=== PATIENT | male | born 1960 | race Caucasian/White ===

== ENCOUNTER 2020-04-19 08:34 | Outpatient (CLI) | payer MEDICAID ==
--- NOTE | 2020-04-19 09:14 | RAD ---
EXAM: 5 views of the cervical spine HISTORY: Neck pain COMPARISON: None FINDINGS: AP, lateral, flexion/extension, and open mouth odontoid views of the cervical spine shows g rade 1 retrolisthesis of the C5 vertebral body relation to the vertebral bodies above and below this level. No acute fracture is seen. Degenerative changes are seen surrounding the C5/6 interverteb ral disc with joint space narrowing and osteophyte formation. Posterior facet arthrosis is seen throughout the cervical spine. No prevertebral soft tissue swelling is seen. Alignment is unchanged with flexion and extension. IMPRESSION: Degenerative changes of the cervical spine with unchanged alignment with bending
--- NOTE | 2020-04-19 09:17 | RAD ---
LUMBAR SPINE SERIES 3 VIEWS: Date: 04/19/2020 HISTORY: Back and right hip and leg pain. FINDINGS: Scoliotic change is seen convex to the right. Laminectomy changes seen at L2, L3, and L4, with severe disc narrowing at L2-3 and L3-4, less pronounced disc narrowing at L1-2, L4-5, and L5-S1 levels. Ped icles are intact. Degenerative facet changes are noted. IMPRESSION: Postop changes and severe arthritic changes of the spine. POS: LEXI
== END 2020-04-19 08:35 | disposition home or self-care (01) ==
LOC: BICRAD 08:34
PROVIDERS: ATTEND Neurological Surgery
DX: M54.40 Lumbago with sciatica, unspecified side (principal); M50.30 Other cervical disc degeneration, unspecified cervical region; M47.812 Spondylosis without myelopathy or radiculopathy, cervical region; M47.816 Spondylosis without myelopathy or radiculopathy, lumbar region; Z98.890 Other specified postprocedural states
CPT/HCPCS: 72050; 72110

== ENCOUNTER 2020-04-21 08:53 | Outpatient (CLI) | payer MEDICAID ==
--- NOTE | 2020-04-21 09:53 | RAD ---
2 VIEW CHEST: Date: 04/21/2020 HISTORY: Dyspnea. COMPARISON: Chest exam from 2013. FINDINGS: The lungs appear clear. No infiltrate identified. Heart and mediastinum appear normal. Osseous struct ures unremarkable. IMPRESSION: No acute findings. POS: AH
== END 2020-04-21 08:54 | disposition home or self-care (01) ==
LOC: BICRAD 08:53
PROVIDERS: ATTEND Internal Medicine Pulmonary Disease
DX: R06.00 Dyspnea, unspecified (principal)
CPT/HCPCS: 71046

== ENCOUNTER 2022-09-24 17:23 | Observation (INO) | payer OTHER ==
[2022-09-24 18:44] VITALS: BMI 23.9
[2022-09-24] MEDS ORDERED: Acetaminophen 325 MG TAB PO PRN (19:57)
[2022-09-24] MEDS ORDERED: Ondansetron ODT 4 MG TAB PO PRN (19:57)
[2022-09-24] MEDS ORDERED: Ondansetron PF 4 MG/2 ML Vial IVP PRN (19:57)
[2022-09-24] MEDS ORDERED: Meclizine HCl 12.5 MG TAB PO PRN (20:10)
[2022-09-24] MEDS ORDERED: Albuterol 200 PUFF (6.7GM INHALER) INH PRN (20:15)
[2022-09-24] MEDS ORDERED: Atorvastatin Calcium 40 MG TAB PO SCH (21:00)
[2022-09-24] MEDS ORDERED: DULoxetine 30 MG CAP PO SCH (21:00)
[2022-09-25] MEDS ORDERED: Levothyroxine Sodium 88 MCG TAB PO SCH (06:00)
[2022-09-25] MEDS ORDERED: Iopamidol 370 76% 100 ML VIAL ONE (08:35)
[2022-09-25] MEDS ORDERED: Aspirin 81 mg Enteric Coated Tablet PO SCH (09:00)
[2022-09-25 12:47] VITALS: TEMP 98.2
[2022-09-25] MEDS ORDERED: Lansoprazole 15 MG/5 ML (BATCHED)UDCUP PO SCH (14:00)
[2022-09-25 16:42] VITALS: BP 98/54
== END 2022-09-25 18:13 | disposition home or self-care (01) ==
LOC: 2SW 18:13
PROVIDERS: ADMIT Internal Medicine; ATTEND Internal Medicine
DX: R42 Dizziness and giddiness (principal); R55 Syncope and collapse; I65.23 Occlusion and stenosis of bilateral carotid arteries; M50.322 Other cervical disc degeneration at C5-C6 level; J44.9 Chronic obstructive pulmonary disease, unspecified; K21.9 Gastro-esophageal reflux disease without esophagitis; E78.2 Mixed hyperlipidemia; G89.29 Other chronic pain; M54.9 Dorsalgia, unspecified; Z85.21 Personal history of malignant neoplasm of larynx; Z87.891 Personal history of nicotine dependence; Z79.82 Long term (current) use of aspirin; Z79.890 Hormone replacement therapy; Z79.899 Other long term (current) drug therapy; Z88.0 Allergy status to penicillin; Z20.822 Contact with and (suspected) exposure to COVID-19
CPT/HCPCS: 70496; 70498; G0378; Q0162; Q9967; U0003; U0005

== ENCOUNTER 2024-08-12 12:02 | Outpatient (CLI) | payer OTHER | END 2024-08-12 12:03 | disposition home or self-care (01) | LOC: CT 12:02 | PROVIDERS: ATTEND Internal Medicine | DX: Z12.2 Encounter for screening for malignant neoplasm of respiratory organs (principal); J44.9 Chronic obstructive pulmonary disease, unspecified; F17.218 Nicotine dependence, cigarettes, with other nicotine-induced disorders | CPT/HCPCS: 71271 ==